=== PATIENT | female | born 1970 | race Caucasian/White ===

== ENCOUNTER 2021-11-14 14:53 | Emergency (ER) | payer MEDICAID ==
[~2021-11-14] VITALS: Ht 170.2 cm; Wt 72.6 kg
[2021-11-14 14:58] VITALS: BP 115/85
[2021-11-14 16:08] LABS: BASOPHILS # (AUTO) 0.1 K/uL (0.00-0.22); BASOPHILS % (AUTO) 0.8 % (0.0-2.0); EOSINOPHILS # (AUTO) 0.2 K/uL (0-0.4); EOSINOPHILS % (AUTO) 2.6 % (0.0-4.0); HEMATOCRIT 40.2 % (36-48); HEMOGLOBIN 13.6 g/dL (12.0-16.0); LYMPHOCYTES # (AUTO) 1.9 K/uL (2.5-16.5); LYMPHOCYTES % (AUTO) 25.3 % (20.5-51.1); MEAN CORPUSCULAR HEMOGLOBIN 31 pg (27-31); MEAN CORPUSCULAR HGB CONC 34 g/dL (33-37); MEAN CORPUSCULAR VOLUME 92.6 fL (80-94); MONOCYTES # (AUTO) 0.8 K/uL (0.8-1.0); MONOCYTES % (AUTO) 10.1 % (1.7-9.3); NEUTROPHILS # (AUTO) 4.7 K/uL (1.8-7.7); NEUTROPHILS % (AUTO) 61.2 % (42.2-75.2); PLATELET COUNT (AUTO) 202 K/uL (140-450); RED BLOOD CELL COUNT(AUTO) 4.33 MIL/uL (4.20-5.40); RED CELL DISTRIBUTION WIDTH 12.2 % (11.6-13.7); WHITE BLOOD COUNT (AUTO) 7.7 K/uL (4.8-10.8)
[2021-11-14 16:25] LABS: ACETAMINOPHEN < 0.5 ug/ml (10-30); ANION GAP 17.1 (8-16); ASPARTATE AMINOTRANSFERASE 29 U/L (15-37); CARBON DIOXIDE 19.5 mmol/L (21-32); CHLORIDE 106 mmol/L (98-107); CREATININE 0.9 mg/dL (0.6-1.3); GFR ARICAN-AMERICAN 85 mL/min (>90); GLUCOSE 86 mg/dL (74-106); POTASSIUM 3.6 mmol/L (3.5-5.1); SODIUM SERUM 139 mmol/L (136-145); TOTAL BILIRUBIN 0.4 mg/dL (0.0-1.0); UREA NITROGEN, BLOOD 11 mg/dL (7-18)
[2021-11-14 16:26] LABS: SALICYLATE < 2.8 mg/dL (2.8-20.0)
--- NOTE | 2021-11-14 16:32 | NUR ---
URINE COLLECTED HANDED TO DINAH, CPT.
[2021-11-14] MEDS ORDERED: LORazepam 1 MG TAB PO ONE (17:00)
--- NOTE | 2021-11-14 17:23 | NUR ---
po meds given-nadr at this time
--- NOTE | 2021-11-14 17:36 | NUR ---
PCR/SOKENYAA SENT TO LAB
[2021-11-14 17:52] LABS: CANNABINOID, URINE POSITIVE ng/mL (NEG <=50); COCAINE, URINE POSITIVE ng/mL (NEG <=300)
[2021-11-14 17:53] LABS: BARBITURATE, URINE NEGATIVE ng/ml (NEG <=200); BENZODIAZEPINE, URINE NEGATIVE ng/mL (NEG <=200); OPIATE, URINE POSITIVE ng/mL (NEG <=2000); PHENCYCLIDINE SCREEN,URINE NEGATIVE ng/mL (NEG <=25)
--- NOTE | 2021-11-14 18:09 | NUR ---
51 y/o female biba for suicidal ideation. Patient is alert. Patient was picked [place] from bus stop saying she wanted to kill herself and had a plan to jump in front of traffic. Medical History: Denies NKDA
[2021-11-15] MEDS ORDERED: LORazepam 1 MG TAB PO ONE (01:30)
--- NOTE | 2021-11-15 01:34 | NUR ---
PT MOVED TO BED 5
--- NOTE | 2021-11-15 02:09 | NUR ---
PT TALKING TO DR VIA TELE-PSYCH
--- NOTE | 2021-11-15 02:45 | NUR ---
BRIAN CASTELLON LIFTED THE 5150, PT DOES NOT NEED TO BE ON A HOLD.
--- NOTE | 2021-11-15 02:50 | NUR ---
DR JAIME AT BEDSIDE DISCHARGING PT. PT REFUSED TO LEAVE OR SIGN DC PAPERWORK.
--- NOTE | 2021-11-15 02:58 | NUR ---
SECURITY AT BEDSIDE
[2021-11-15 03:06] VITALS: BP 115/85
--- NOTE | 2021-11-15 03:07 | NUR ---
Patient discharged with v/s stable. Written and verbal after care instructions given and explained. Patient verbalized understanding. Ambulatory with steady gait. All questions addressed prior to discharge. Advised to follow up with PMD. VSS, A/OX4, UNLABORED BREATHING, AMBULATORY, AND CALM DEMEANOR. PT COMPLIANT WITH SECURITY AND ESCORTED TO LOBBY. PT REFUSED TO SIGN FOR AND ACCEPT DC PAPERWORK. PT UNDERSTANDS DC INSTRUCTIONS.
== END 2021-11-15 03:07 | disposition home or self-care (01) ==
LOC: MED 14:53
DX: F10.129 Alcohol abuse with intoxication, unspecified (principal); Z20.822 Contact with and (suspected) exposure to COVID-19; F12.90 Cannabis use, unspecified, uncomplicated; F15.90 Other stimulant use, unspecified, uncomplicated; Y90.9 Presence of alcohol in blood, level not specified
CPT/HCPCS: 36415; 80053; 80305; 81025; 84703; 85025; 87426; 99285; G0480; G0482; U0003